=== PATIENT | male | born 1965 | race Caucasian/White ===

== ENCOUNTER 2018-03-28 11:54 | Outpatient (CLI) | payer OTHER | END 2018-03-28 12:12 | disposition home or self-care (01) | LOC: RAD 11:54 | DX: M25.562 Pain in left knee (principal); M25.561 Pain in right knee ==

== ENCOUNTER 2019-05-20 08:05 | Emergency (ER) | payer OTHER ==
[~2019-05-20] VITALS: Ht 177.8 cm; Wt 83.9 kg
[2019-05-20] MEDS ORDERED: DICY20TA PO (12:56)
[2019-05-20] MEDS ORDERED: ZOFRAN8 MG PO (12:56)
[2019-05-20] MEDS ORDERED: PEPCID AC20 MG PO (12:56)
[2019-05-20] MEDS ORDERED: LOSARTAN POTASS25 MG PO (12:57)
== END 2019-05-20 13:18 | disposition home or self-care (01) ==
LOC: ER 08:05
DX: K52.9 Noninfective gastroenteritis and colitis, unspecified (principal)

== ENCOUNTER 2021-08-30 12:58 | Outpatient (CLI) | payer OTHER ==
[~2021-08-30 12:58] MED LIST: DICY20TA PO; LOSARTAN POTASS25 MG PO; PEPCID AC20 MG PO; ZOFRAN8 MG PO
== END 2021-08-30 13:06 | disposition home or self-care (01) ==
LOC: RAD 12:58
PROVIDERS: ATTEND Orthopaedic Surgery Sports Medicine
DX: M54.2 Cervicalgia (principal); M25.561 Pain in right knee; M25.562 Pain in left knee; M17.0 Bilateral primary osteoarthritis of knee; M94.261 Chondromalacia, right knee; M94.262 Chondromalacia, left knee

== ENCOUNTER 2024-06-24 11:01 | Outpatient (CLI) | payer OTHER | END 2024-06-24 11:11 | disposition home or self-care (01) | LOC: RAD 11:01 | DX: M17.0 Bilateral primary osteoarthritis of knee (principal) ==

== ENCOUNTER 2024-07-22 10:07 | Outpatient (CLI) | payer OTHER | END 2024-07-22 10:08 | disposition home or self-care (01) | LOC: RAD 10:07 | PROVIDERS: ATTEND Internal Medicine Cardiovascular Disease | DX: I10 Essential (primary) hypertension (principal) ==

== ENCOUNTER 2025-01-19 09:32 | Outpatient (CLI) | payer OTHER ==
[~2025-01-19 09:32] MED LIST changes: +CELEBREX100 MG PO
== END 2025-01-19 09:41 | disposition home or self-care (01) ==
LOC: RAD 09:32
DX: M17.0 Bilateral primary osteoarthritis of knee (principal)